=== PATIENT | female | born 1975 | race Two or more races ===

== ENCOUNTER 2020-07-16 21:19 | Emergency (ER) | payer OTHER ==
[~2020-07-16] VITALS: Ht 172.7 cm; Wt 134.7 kg
[2020-07-16] MEDS ORDERED: IBUPROFEN 600 MG TAB PO ONE (22:15)
[2020-07-17] MEDS ORDERED: MORPHINE SULFATE 10 MG/ML INJ 1ML SDV IM ONE (01:00)
[2020-07-17] MEDS ORDERED: ONDANSETRON HCL 4 MG/2 ML VIAL IM ONE (01:00)
[2020-07-17] MEDS ORDERED: MORPHINE SULFATE 4 MG/ML SYR/VIAL ONE (01:06)
[2020-07-17 02:59] VITALS: BP 138/79
== END 2020-07-17 02:43 | disposition short-term general hospital (02) ==
LOC: ER 21:19 → EDBD 21:19 → ER 07-17 02:43
DX: S82.832A Other fracture of upper and lower end of left fibula, initial encounter for closed fracture (principal); S82.892A Other fracture of left lower leg, initial encounter for closed fracture; Z88.5 Allergy status to narcotic agent; X50.1XXA Overexertion from prolonged static or awkward postures, initial encounter; Y93.89 Activity, other specified; Y92.89 Other specified places as the place of occurrence of the external cause; Y99.8 Other external cause status
CPT/HCPCS: 73600; 96372; 99284; J2270; J2405